=== PATIENT | female | born 1955 | race Caucasian/White ===

== ENCOUNTER 2016-10-20 06:50 | Day surgery (SDC) | payer OTHER ==
[~2016-10-20] VITALS: Ht 149.9 cm; Wt 87.0 kg
[2016-10-20] VITALS (14 sets, daily range): BP systolic 78–148; BP diastolic 44–70; PULSE 67–90; RESP 12–18; Ht 149.9 cm; Wt 87.0 kg
[2016-10-20] MEDS ORDERED: ATOR40TA68 PO (07:18)
[2016-10-20] MEDS ORDERED: OMEP20CA16 PO (07:18)
[2016-10-20] MEDS ORDERED: LOSA100T7 PO (07:19)
[2016-10-20] MEDS ORDERED: HYD25 PO (07:19)
[2016-10-20] MEDS ORDERED: SPIR25TA PO (07:20)
[2016-10-20] MEDS ORDERED: ASPI-664 PO (07:20)
[2016-10-20] MEDS ORDERED: SERT50TA6 PO (07:20)
[2016-10-20] MEDS ORDERED: NAPR-688 PO (07:21)
[2016-10-20 09:48] LABS: ADD SCAN DIFF NO
--- NOTE | 2016-10-20 09:58 | RADRPT ---
PROCEDURE: XR Chest. CLINICAL INDICATION: Preoperative for fibroids. TECHNIQUE: Single frontal view. COMPARISON: None. FINDINGS: The lungs are clear. The heart size is normal. There is no pleural effusion. There is no pneumothorax. IMPRESSION: 1. Normal chest radiograph. RPTAT: QQ .Shawn Clemens MD, MD Date Time Electronically viewed and signed by .Shawn Clemens MD, on 10/20/2016 09:57 .R/
[2016-10-20] MEDS ORDERED: ONDANSETRON 4 MG INJ IV PRN ×2 (10:00→14:00)
[2016-10-20] MEDS ORDERED: PROCHLORPERAZINE 10 MG INJ IV PRN (10:00)
[2016-10-20] MEDS ORDERED: MEPERIDINE 25 MG INJ IV PRN (10:00)
[2016-10-20] MEDS ORDERED: HYDROmorphONE (0.2 MG/ML) 10ML SYG IV PRN ×4 (10:00→14:00)
[2016-10-20] MEDS ORDERED: DIPHENHYDRAMINE 50 MG INJ IV PRN (10:00)
[2016-10-20 10:01] LABS: BASOPHILS % 0.4 % (0.0-2.0); EOSINOPHILS # 0.3 10^3/ul (0.0-0.5); EOSINOPHILS % 4.8 % (0.0-7.0); HEMATOCRIT 34.6 % (37.0-47.0); HEMOGLOBIN 11.7 g/dl (12.0-16.0); LYMPHOCYTES # 1.4 10^3/ul (0.8-2.9); LYMPHOCYTES % 24.7 % (15.0-51.0); MEAN CORPUSCULAR HEMOGLOBIN 29.3 pg (29.0-33.0); MEAN CORPUSCULAR HGB CONC 33.8 g/dl (32.0-37.0); MEAN CORPUSCULAR VOLUME 86.7 fl (82.0-101.0); MEAN PLATELET VOLUME 12.6 fl (7.4-10.4); MONOCYTE # 0.4 10^3/ul (0.3-0.9); MONOCYTES % 6.6 % (0.0-11.0); NEUTROPHIL # 3.5 10^3/ul (1.6-7.5); NEUTROPHILS % 63.1 % (39.0-77.0); PLATELET COUNT 127 10^3/UL (140-415); RED BLOOD COUNT 3.99 10^6/ul (4.20-5.40); RED CELL DISTRIBUTION WIDTH 12.6 % (11.5-14.5); WHITE BLOOD COUNT 5.5 10^3/ul (4.8-10.8)
[2016-10-20 10:23] LABS: ALBUMIN 4.5 g/dl (3.3-4.9); ALBUMIN/GLOBULIN RATIO 1.87; BILIRUBIN,INDIRECT 0.3 mg/dl (0-1.1); BILIRUBIN,TOTAL 0.3 mg/dl (0.2-1.3); TOTAL PROTEIN 6.9 g/dl (6.1-8.1)
[2016-10-20 10:29] LABS: CALCIUM 9.3 mg/dl (8.4-10.2); CREATININE 0.67 mg/dl (0.44-1.00); POTASSIUM 3.6 mmol/L (3.5-5.1)
[2016-10-20] MEDS ORDERED: MIDAZOLAM 1 MG/ML 2 ML INJ ONE (12:36)
[2016-10-20] MEDS ORDERED: ONDANSETRON 4 MG INJ ONE (12:37)
[2016-10-20] MEDS ORDERED: PROPOFOL 20 ML ONE (12:37)
[2016-10-20] MEDS ORDERED: LIDOCAINE 2% (SDV) 5 ML INJ ONE (12:37)
[2016-10-20] MEDS ORDERED: FAMOTIDINE 20 MG INJ ONE (12:37)
[2016-10-20] MEDS ORDERED: DEXAMETHASONE 4 MG/ML 1 ML INJ ONE (12:37)
[2016-10-20] MEDS ORDERED: SUCCINYLCHOLINE CHLORIDE 100 MG/5 ML SYG IV ONE (13:12)
[2016-10-20] MEDS ORDERED: ROCURONIUM 50 MG INJ ONE (13:12)
[2016-10-20] MEDS ORDERED: EPHEDrine SULFATE 50 MG/5 ML SYG ONE (13:14)
[2016-10-20] MEDS ORDERED: ALBUTEROL 0.5% (NEB) 2.5 MG/0.5 ML AMP ONE (13:42)
[2016-10-20] MEDS ORDERED: FENTAnyl 50 MCG/ML VIAL IV PRN ×2 (14:00)
[2016-10-20] MEDS ORDERED: ALBUTEROL 0.083% (NEB) 2.5 MG/3 ML AMP HHN ONE (14:00)
--- NOTE | 2016-10-20 14:28 | OPR ---
Date/Time of Note Date/Time of Note DATE: 10/20/16 TIME: 14:25 Operative Report Preoperative Diagnosis Postmenopausal [place] Postoperative Diagnosis Same Operation/Procedure Performed Dilation and Curettage Surgeon: DARRYL BAILON MD Anesthesia: general Estimated Blood Loss: minimal Specimens ECC and EMC Complications: None DARRYL BAILON MD Oct 20, 2016 14:28
--- NOTE | 2016-10-20 17:18 | RADRPT ---
Vent Rate: 63 bpm RR Interval: 0 msec MO Interval: 172 msec QRS Duration: 88 msec QT Interval: 438 msec QTC Interval: 448 msec P-R-T [place]: 47 - -36 - 35 degrees Normal sinus rhythm Left axis deviation Abnormal ECG Electronically Signed By: Demar Garrison [id number]
--- NOTE | 2016-10-21 08:54 | PREOPHP ---
DATE OF ADMISSION: 10/20/2016 HISTORY OF PRESENT ILLNESS: Djraq-[id number]-[id number] female with a history of postmenopausal bleeding. PAST MEDICAL HISTORY: Hypertension. PAST MEDICAL HISTORY: Cholecystectomy. ALLERGIES: NO KNOWN ALLERGIES. FAMILY HISTORY: Diabetes. PHYSICAL EXAMINATION: VITAL SIGNS: The patient is afebrile. Vital signs are stable. HEENT: Head and neck within normal limits. ABDOMEN: Soft, nontender, nondistended. PELVIC: Exam normal. EXTREMITIES: Within normal limits. IMPRESSION: Postmenopausal bleeding. PLAN: Dilatation and curettage, risks, benefits and alternatives of procedure were explained to the patient. The patient states she understood and gave informed consent for the procedure. Dictated By: Marlon Romeo MD /cherie/ /Document#: [id number]
--- NOTE | 2016-10-28 06:36 | OPR ---
DATE OF OPERATION: 10/20/2016 PREOPERATIVE DIAGNOSIS: Postmenopausal bleeding. POSTOPERATIVE DIAGNOSIS: Postmenopausal bleeding. OPERATION PERFORMED: Endocervical curettage. Dilation and endometrial curettage. SURGEON: Marlon Romeo MD ANESTHESIA: General ANESTHESIOLOGIST: DESCRIPTION OF PROCEDURE: The patient was taken to the operating room and placed on the operating room table in supine position. After adequate general anesthesia was given, the patient was placed in dorsal lithotomy position. Speculum was placed into the vagina. Tenaculum was used to grasp the anterior lip of the cervix. Using endocervical curette, endocervical curettage was performed. Specimen obtained was sent to Pathology. Next, using cervical dilators, the cervical os was dilated. Using a sharp curette, endometrial curettage was performed and specimen obtained was sent to Pathology. All the instruments were removed. Adequate hemostasis was assured. The patient tolerated the procedure well. The patient was awakened from anesthesia and transferred to recovery in stable condition. ESTIMATED BLOOD LOSS: Minimal COMPLICATIONS: None. COUNTS: All counts were correct. Dictated By: Marlon Romeo MD /cherie/shaina /Document#: [id number]
== END 2016-10-20 15:10 | disposition home or self-care (01) ==
LOC: SDS 06:50
PROVIDERS: ATTEND Obstetrics & Gynecology
DX: N95.9 Unspecified menopausal and perimenopausal disorder (principal); I10 Essential (primary) hypertension; E66.9 Obesity, unspecified; Z68.38 Body mass index [BMI] 38.0-38.9, adult; J45.909 Unspecified asthma, uncomplicated
CPT/HCPCS: 58120; 71010; 80053; 85025; 86850; 86900; 86901; 88305; 93005; 94664; J1100; J2250; J2405; J3010; J7999; Z7512; Z7610

== ENCOUNTER 2016-12-31 05:16 | Inpatient (IN) | payer OTHER ==
[~2016-12-31] VITALS: Ht 149.9 cm; Wt 78.6 kg
[2016-12-31] VITALS (29 sets, daily range): BP systolic 99–151; BP diastolic 54–78; PULSE 55–89; RESP 10–22; Ht 149.9 cm; Wt 78.6 kg
[~2016-12-31 05:16] MED LIST: ASPI-664 PO; ATOR40TA68 PO; HYDR25TA6 PO; LOSA100T7 PO; NAPR-688 PO; OMEP20CA16 PO; SERT50TA6 PO; SPIR25TA PO
[2016-12-31] MEDS ORDERED: D5-NS + KCL 20 MEQ 1,000 ML IV SCH (06:00)
[2016-12-31] MEDS ORDERED: Metronidazole 500 MG in NS 100 ML IVPB SCH (06:00)
[2016-12-31] MEDS ORDERED: CEFAZOLIN 2 GM/50 ML (PMX) 50 ML IVPB SCH (06:00)
[2016-12-31] MEDS ORDERED: AMLO5TAB4 PO (06:13)
[2016-12-31] MEDS ORDERED: fish oil (06:13)
[2016-12-31] MEDS ORDERED: omega 3 (06:14)
[2016-12-31] MEDS ORDERED: vit c (06:14)
[2016-12-31] MEDS ORDERED: [UNRECOGNIZED DRUG - OTHER] (06:14)
[2016-12-31] MEDS ORDERED: mvi (06:14)
[2016-12-31] MEDS ORDERED: EPHEDrine SULFATE 50 MG/5 ML SYG ONE (07:00)
--- NOTE | 2016-12-31 07:03 | HPN ---
Date/Time of Note Date/Time of Note DATE: 12/31/16 TIME: 07:01 Interval H&P Admission Note Pt. seen H&P reviewed: No system changes SHASTA SERRANO MD Dec 31, 2016 07:03
[2016-12-31] MEDS ORDERED: MIDAZOLAM 1 MG/ML 2 ML INJ ONE (07:38)
[2016-12-31] MEDS ORDERED: PROPOFOL 20 ML ONE (07:38)
[2016-12-31] MEDS ORDERED: ROCURONIUM 50 MG INJ ONE ×3 (07:38→09:19)
[2016-12-31] MEDS ORDERED: FENTAnyl 50 MCG/ML VIAL ONE (07:39)
[2016-12-31] MEDS ORDERED: morphine SULFATE/PF (10 MG/10 ML) INJ ONE (07:39)
[2016-12-31] MEDS ORDERED: DEXAMETHASONE 4 MG/ML 1 ML INJ ONE (07:39)
[2016-12-31] MEDS ORDERED: METOCLOPRAMIDE 10 MG INJ ONE (07:39)
[2016-12-31] MEDS ORDERED: CEFAZOLIN 1 GM INJ ONE (07:52)
[2016-12-31] MEDS ORDERED: metroNIDAZOLE 500 MG/NS (PMX) 100 ML IVPB ONE (07:52)
[2016-12-31] MEDS ORDERED: METHYLENE BLUE 1% 10 ML INJ ONE (08:58)
[2016-12-31] MEDS ORDERED: THROMBIN 5000 UNIT VIAL ONE (09:12)
[2016-12-31] MEDS ORDERED: ROPIVACAINE 0.5 % 30 ML VIAL ONE (11:27)
[2016-12-31] MEDS ORDERED: DIPHENHYDRAMINE 50 MG INJ IV PRN ×3 (11:30→12:30)
[2016-12-31] MEDS ORDERED: ONDANSETRON 4 MG INJ IV PRN ×3 (11:30→12:30)
[2016-12-31] MEDS ORDERED: METOCLOPRAMIDE 10 MG INJ IV PRN (11:30)
[2016-12-31] MEDS ORDERED: LABETALOL HCL 20MG INJ IV PRN (11:30)
[2016-12-31] MEDS ORDERED: NALOXONE (0.4 MG/ML) INJ IV PRN (11:30)
[2016-12-31] MEDS ORDERED: EPHEDrine SULFATE 50 MG/5 ML SYG IV PRN (11:30)
[2016-12-31] MEDS ORDERED: ALBUTEROL 0.083% (NEB) 2.5 MG/3 ML AMP HHN PRN (11:30)
[2016-12-31] MEDS ORDERED: hydrALAzine 20 MG INJ IV PRN (11:30)
[2016-12-31] MEDS ORDERED: HYDROmorphONE (0.2 MG/ML) 10ML SYG IV PRN (11:30)
[2016-12-31] MEDS ORDERED: HYDROmorphONE 1 MG/ML SYG IV PRN ×3 (11:30)
[2016-12-31] MEDS ORDERED: NEOSTIGMINE 3 MG/3 ML SYRINGE ONE ×2 (11:35→12:03)
[2016-12-31] MEDS ORDERED: GLYCOPYRROLATE 0.4 MG INJ ONE (11:35)
[2016-12-31] MEDS ORDERED: SUGAMMADEX SODIUM 200 MG/2 ML VIAL IV ONE (12:14)
[2016-12-31] MEDS: POTASSIUM CHLORIDE 20 MEQ in LACTATED RINGER'S 1,000 ML IV SCH ×2 (12:17→17:39)
--- NOTE | 2016-12-31 12:29 | OPPN ---
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
[2016-12-31] MEDS ORDERED: CEFAZOLIN 1 GM in SOD CHLORIDE 0.9% 100 ML IVPB SCH (12:30)
[2016-12-31] MEDS: HYDROmorphONE (0.2 MG/ML) 10ML SYG IV PRN ×4 (12:39→13:14)
[2016-12-31] MEDS: MEPERIDINE 25 MG INJ IV PRN ×2 (12:39→13:28)
[2016-12-31 13:27] LABS: BASOPHILS % 0.2 % (0.0-2.0); EOSINOPHILS % 0.5 % (0.0-7.0); HEMATOCRIT 34.6 % (37.0-47.0); LYMPHOCYTES # 0.6 10^3/ul (0.8-2.9); LYMPHOCYTES % 10.3 % (15.0-51.0); MEAN CORPUSCULAR HEMOGLOBIN 30.2 pg (29.0-33.0); MEAN CORPUSCULAR HGB CONC 34.7 g/dl (32.0-37.0); MEAN CORPUSCULAR VOLUME 86.9 fl (82.0-101.0); MEAN PLATELET VOLUME 11.6 fl (7.4-10.4); MONOCYTE # 0.1 10^3/ul (0.3-0.9); NEUTROPHIL # 5.2 10^3/ul (1.6-7.5); NEUTROPHILS % 87.5 % (39.0-77.0); PLATELET COUNT 141 10^3/UL (140-415); RED BLOOD COUNT 3.98 10^6/ul (4.20-5.40); RED CELL DISTRIBUTION WIDTH 13.1 % (11.5-14.5); WHITE BLOOD COUNT 5.9 10^3/ul (4.8-10.8)
[2016-12-31 13:54] LABS: CALCIUM 8.7 mg/dl (8.4-10.2); CREATININE 0.57 mg/dl (0.44-1.00); POTASSIUM 3.8 mmol/L (3.5-5.1)
[2016-12-31] MEDS: CEFAZOLIN 1 GM/50 ML (PMX) 50 ML IVPB SCH ×2 (15:16→22:51)
[2016-12-31] MEDS: metroNIDAZOLE 500 MG/NS (PMX) 100 ML IVPB SCH ×2 (16:38→21:10)
[2016-12-31] MEDS: KETOROLAC 30 MG INJ IV PRN (17:38)
[2016-12-31] MEDS: ATORVASTATIN 40 MG TAB PO SCH (21:10)
[2016-12-31] MEDS: AMLODIPINE 5 MG TAB PO SCH (21:11)
[2016-12-31] MEDS: FAMOTIDINE 20 MG INJ IV SCH (21:11)
--- NOTE | 2016-12-31 23:24 | HP ---
DATE OF ADMISSION: 12/31/2016 HISTORY OF PRESENT ILLNESS: Patient is a 61-year-old female with history of hypertension, depression, who was being followed by Dr. Comer as an outpatient for gradually increasing pelvic mass. Patient was in fact seen by Dr. Romeo and was referred to Dr. Comer. The mass was thought to be complex and likely fibroid. Patient also had uterine cyst surgery with postmenopausal bleeding. Patient underwent endocervical curettage, dilatation and endometrial curettage which by Dr. Romeo in October 2016. Endocervical curettage was negative for dysplasia or malignancy; however, endometrial curettings was not adequate for evaluation. Patient was brought into the hospital today and underwent laparoscopic total hysterectomy and bilateral salpingo-oophorectomy, ureter dissection and enterolysis. Patient is being admitted for further evaluation and management. Patient denies any chest pain or shortness of breath. No reported headache, dizziness, syncope. No history of leg pain or weakness or numbness in any extremity. No recent fever or chills. REVIEW OF SYSTEMS: Other than postoperative pain, rest of review of systems were unremarkable. PAST SURGICAL HISTORY: Patient is status post section and abdominoplasty, and tubal ligation. ALLERGIES: NONE. FAMILY HISTORY: Noncontributory. SOCIAL HISTORY: No smoking or alcohol. PHYSICAL EXAMINATION: GENERAL: Patient conscious, awake, alert. VITAL SIGNS: Temperature 98, pulse 60, respiration 18, blood pressure 136/71, O2 sat 95% on 2 L nasal cannula. HEENT: Normal. Oropharynx clear. NECK: Supple. No mass or thyromegaly. CHEST: Fairly clear. CARDIAC: S1, S2 No murmur. ABDOMEN: Patient is status post surgery. EXTREMITIES: No leg edema. Pedal pulses palpable. SKIN: Without rash. NEUROLOGIC: Patient is awake, alert, with no gross focal deficit. LABORATORY DATA: WBC 5.9, hemoglobin 12, platelet 141,000. Sodium 140, potassium 3.8, BUN 9, creatinine 0.5, glucose 175, calcium 8.7. IMPRESSION: 1. Postmenopausal bleeding and adnexal mass status post laparoscopic total hysterectomy and bilateral salpingo- oophorectomy, ureter dissection and enterolysis. 2. Hypertension. 3. Dyslipidemia. 4. Depression. PLAN: Patient admitted on medical floor. Patient was started on clear liquid diet and will be started on Norvasc for hypertension. Will continue Lipitor for dyslipidemia, and Zoloft for depression. Patient is already on IV Pepcid for GI prophylaxis, and SCD for DVT prophylaxis. Further recommendations depend on patient's hospital course. Will continue to follow her from medical standpoint. Dictated By: Enio Cortés MD /cherie/jazmin /Document#: [id number]
[2017-01-01] MEDS: metroNIDAZOLE 500 MG/NS (PMX) 100 ML IVPB SCH (05:00)
[2017-01-01] MEDS: KETOROLAC 30 MG INJ IV PRN (05:01)
[2017-01-01 05:09] VITALS: BP 116/59; PULSE 69; RESP 18
[2017-01-01 06:18] LABS: BASOPHILS % 0.2 % (0.0-2.0); EOSINOPHILS % 0.2 % (0.0-7.0); HEMATOCRIT 29.2 % (37.0-47.0); HEMOGLOBIN 9.5 g/dl (12.0-16.0); LYMPHOCYTES # 0.8 10^3/ul (0.8-2.9); LYMPHOCYTES % 17.4 % (15.0-51.0); MEAN CORPUSCULAR HEMOGLOBIN 29.3 pg (29.0-33.0); MEAN CORPUSCULAR HGB CONC 32.5 g/dl (32.0-37.0); MEAN CORPUSCULAR VOLUME 90.1 fl (82.0-101.0); MEAN PLATELET VOLUME 12.3 fl (7.4-10.4); MONOCYTE # 0.3 10^3/ul (0.3-0.9); MONOCYTES % 6.7 % (0.0-11.0); NEUTROPHIL # 3.6 10^3/ul (1.6-7.5); NEUTROPHILS % 75.3 % (39.0-77.0); PLATELET COUNT 129 10^3/UL (140-415); RED BLOOD COUNT 3.24 10^6/ul (4.20-5.40); RED CELL DISTRIBUTION WIDTH 13.3 % (11.5-14.5); WHITE BLOOD COUNT 4.8 10^3/ul (4.8-10.8)
[2017-01-01] MEDS: CEFAZOLIN 1 GM/50 ML (PMX) 50 ML IVPB SCH (06:40)
[2017-01-01] MEDS: morphine 2 MG INJ IV PRN ×2 (06:45→12:40)
[2017-01-01] MEDS: POTASSIUM CHLORIDE 20 MEQ in LACTATED RINGER'S 1,000 ML IV SCH ×2 (06:47→17:51)
[2017-01-01 07:03] LABS: CALCIUM 8.5 mg/dl (8.4-10.2); CREATININE 0.67 mg/dl (0.44-1.00)
[2017-01-01 08:30] VITALS: BP 101/50; RESP 18
[2017-01-01] MEDS: FAMOTIDINE 20 MG INJ IV SCH (08:56)
[2017-01-01] MEDS: SERTRALINE 50 MG TAB PO SCH (08:56)
[2017-01-01] MEDS: AMLODIPINE 5 MG TAB PO SCH ×2 (08:57→20:05)
[2017-01-01] MEDS ORDERED: PANTOPRAZOLE (EC) 40 MG TAB PO SCH (09:00)
--- NOTE | 2017-01-01 09:20 | PN ---
Date/Time of Note Date/Time of Note DATE: 01/01/17 TIME: 09:18 Assessment/Plan VTE Prophylaxis VTE Prophylaxis Intervention: ambulation Lines/Catheters IV Catheter Type (from Nrsg): Peripheral IV Urinary Cath still in place: Yes Subjective 24 Hr Interval Summary Free Text/Dictation Anesthesia Note: A 61 yea female s/p lap hysterectomy BSO under GA , spinal duramorph is doing fine. pain is controlled, no itching, headache, back apin or iflamation, or N/ V. care per surgery Exam/Review of Systems Vital Signs Vitals Vital Signs Date Time Temp Pulse Resp B/P Pulse Ox O2 Delivery O2 Flow Rate FiO2 01/01/17 08:30 98.2 64 18 101/50 97 01/01/17 05:09 Nasal Cannula 2.0 Intake and Output 12/31/16 12/31/16 01/01/17 15:00 23:00 07:00 Intake Total 1920 ml 710 ml 1300 ml Output Total 500 ml 750 ml 350 ml Balance 1420 ml -40 ml 950 ml Results Result Diagram: 01/01/17 0500 01/01/17 0500 Results 24 hrs Laboratory Tests Test 12/31/16 13:15 01/01/17 05:00 White Blood Count 5.9 4.8 Red Blood Count 3.98 L 3.24 L Hemoglobin 12.0 9.5 #L Hematocrit 34.6 L 29.2 L Mean Corpuscular Volume 86.9 90.1 Mean Corpuscular Hemoglobin 30.2 29.3 Mean Corpuscular Hemoglobin Concent 34.7 32.5 Red Cell Distribution Width 13.1 13.3 Platelet Count 141 129 L Mean Platelet Volume 11.6 H 12.3 H Neutrophils % 87.5 H 75.3 Lymphocytes % 10.3 L 17.4 Monocytes % 1.0 6.7 Eosinophils % 0.5 0.2 Basophils % 0.2 0.2 Nucleated Red Blood Cells % 0.0 0.0 Neutrophils # 5.2 3.6 Lymphocytes # 0.6 L 0.8 Monocytes # 0.1 L 0.3 Eosinophils # 0.0 0.0 Basophils # 0.0 0.0 Nucleated Red Blood Cells # 0.0 0.0 Sodium Level 140 140 Potassium Level 3.8 4.0 Chloride Level 108 107 Carbon Dioxide Level 24 30 Anion Gap 12 7 L Blood Urea Nitrogen 9 10 Creatinine 0.57 0.67 Glucose Level 175 87 # Calcium Level 8.7 8.5 Medications Medications Current Medications Naloxone HCl (Narcan) 0.1 mg Q2M PRN IV FOR RESP RATE 8 OR LESS; Start at 11:30; Stop 01/01/17 at 11:29 Ketorolac Tromethamine (Toradol) 30 mg Q6H PRN IV PAIN Last administered on 05:01; Admin Dose 30 MG; Start 12/31/16 at 11:30; Stop 01/01/17 at 11:29 Hydromorphone HCl (Dilaudid) 1 mg Q3H PRN IV BREAKTHROUGH PAIN; Start 12/31/16 at 11:30; Stop 01/01/17 at 11:29 Hydromorphone HCl (Dilaudid) 0.2 mg Q3H PRN IV PAIN LEVEL 1-5; Start 12/31/16 at 11:30; Stop 01/01/17 at 11:29 Hydromorphone HCl (Dilaudid) 0.4 mg Q3H PRN IV PAIN LEVEL 6-10; Start 12/31/16 at 11:30; Stop 01/01/17 at 11:29 Diphenhydramine HCl (Benadryl) 25 mg Q6H PRN IV ITCHING; Start 12/31/16 at 11: 30; Stop 01/01/17 at 11:29 Ondansetron HCl 4 mg 4 mg Q6H PRN IV NAUSEA AND/OR VOMITING; Start 12/31/16 at 11:30; Stop 01/01/17 at 11:29 Metronidazole (Flagyl 500 Mg (Pmx)) 100 ml @ 100 mls/hr Q8H IVPB Last administered on 01/01/17 05:00; Admin Dose 100 MLS/HR; Start 12/31/16 at 12:30 ; Stop 01/01/17 at 12:29 Morphine Sulfate (morphine) 2 mg Q2H PRN IV PAIN LEVEL 6-10 Last administered on 01/01/17 06:45; Admin Dose 2 MG; Start 12/31/16 at 12:30 Acetaminophen/ Hydrocodone Bitart ([place] (5/325)) 1 tab Q6H PRN PO PAIN LEVEL 6 -10; Start 12/31/16 at 12:30 Diphenhydramine HCl (Benadryl) 25 mg Q6H PRN IV ITCHING; Start 12/31/16 at 12: 30 Ondansetron HCl (Zofran Inj) 4 mg Q6H PRN IV NAUSEA AND/OR VOMITING; Start at 12:30 Famotidine 20 mg 20 mg Q12 IV Last administered on 01/01/17 08:56; Admin Dose 20 MG; Start 12/31/16 at 21:00 Potassium Chloride/Lactated Ringer's (KCl/Lr) 1,010 ml @ 100 mls/hr Q10H6M IV Last administered on 01/01/17 06:47; Admin Dose 100 MLS/HR; Start 12/31/16 at 12:17 Amlodipine Besylate (Norvasc) 5 mg BID PO Last administered on 01/01/17 08:57 ; Admin Dose 5 MG; Start 12/31/16 at 21:00 Atorvastatin Calcium (Lipitor) 40 mg QHS PO Last administered on 12/31/16 21: 10; Admin Dose 40 MG; Start 12/31/16 at 21:00 Sertraline HCl (Zoloft) 50 mg DAILY PO Last administered on 01/01/17 08:56; Admin Dose 50 MG; Start 01/01/17 at 09:00 ALEXANDER CARDENAS MD Jan 01, 2017 09:20
[2017-01-01 15:30] VITALS: BP 115/67; RESP 18
--- NOTE | 2017-01-01 15:58 | PN ---
Date/Time of Note Date/Time of Note DATE: 01/01/17 TIME: 15:54 Assessment/Plan VTE Prophylaxis VTE Prophylaxis Intervention: SCD's Lines/Catheters IV Catheter Type (from Nrsg): Peripheral IV Urinary Cath still in place: Yes Reason Cath still needed: urinary retention Assessment/Plan Chief Complaint/Hosp Course Patient tolerates full liquid diet well denies any nausea vomiting. The catheter DC'd patient is able to void. Patient's complains of pain which is currently controlled Problems: Assessment/Plan 1. Postmenopausal bleeding and adnexal mass status post laparoscopic total hysterectomy and bilateral salpingo- oophorectomy, ureter dissection and enterolysis. Continue morphine as needed for pain. Follow-up surgical recommendations. 2. Hypertension. Continue Norvasc. 3. Dyslipidemia. Continue Lipitor. 4. Depression. Continue Zoloft. Further recommendations based on clinical course. Plan of care discussed with Dr. Cortés Exam/Review of Systems Vital Signs Vitals Vital Signs Date Time Temp Pulse Resp B/P Pulse Ox O2 Delivery O2 Flow Rate FiO2 01/01/17 08:30 98.2 64 18 101/50 97 01/01/17 08:00 Nasal Cannula 1.0 Intake and Output 12/31/16 12/31/16 01/01/17 15:00 23:00 07:00 Intake Total 1920 ml 710 ml 1300 ml Output Total 500 ml 750 ml 350 ml Balance 1420 ml -40 ml 950 ml Exam Constitutional: alert, obese Head: normocephalic Neck: supple Respiratory: normal air movement Cardiovascular: nl pulses Gastrointestinal: non-tender, soft Genitourinary - Female: other (S/p surgery) Extremities: normal pulses Results Result Diagram: 01/01/17 0500 01/01/17 0500 Results 24 hrs Laboratory Tests Test 01/01/17 05:00 White Blood Count 4.8 Red Blood Count 3.24 L Hemoglobin 9.5 #L Hematocrit 29.2 L Mean Corpuscular Volume 90.1 Mean Corpuscular Hemoglobin 29.3 Mean Corpuscular Hemoglobin Concent 32.5 Red Cell Distribution Width 13.3 Platelet Count 129 L Mean Platelet Volume 12.3 H Neutrophils % 75.3 Lymphocytes % 17.4 Monocytes % 6.7 Eosinophils % 0.2 Basophils % 0.2 Nucleated Red Blood Cells % 0.0 Neutrophils # 3.6 Lymphocytes # 0.8 Monocytes # 0.3 Eosinophils # 0.0 Basophils # 0.0 Nucleated Red Blood Cells # 0.0 Sodium Level 140 Potassium Level 4.0 Chloride Level 107 Carbon Dioxide Level 30 Anion Gap 7 L Blood Urea Nitrogen 10 Creatinine 0.67 Glucose Level 87 # Calcium Level 8.5 Medications Medications Current Medications Morphine Sulfate (morphine) 2 mg Q2H PRN IV PAIN LEVEL 6-10 Last administered on 01/01/17 12:40; Admin Dose 2 MG; Start 12/31/16 at 12:30 Acetaminophen/ Hydrocodone Bitart ([place] (5/325)) 1 tab Q6H PRN PO PAIN LEVEL 6 -10; Start 12/31/16 at 12:30 Diphenhydramine HCl (Benadryl) 25 mg Q6H PRN IV ITCHING; Start 12/31/16 at 12: 30 Ondansetron HCl (Zofran Inj) 4 mg Q6H PRN IV NAUSEA AND/OR VOMITING; Start at 12:30 Famotidine 20 mg 20 mg Q12 IV Last administered on 01/01/17 08:56; Admin Dose 20 MG; Start 12/31/16 at 21:00 Potassium Chloride/Lactated Ringer's (KCl/Lr) 1,010 ml @ 50 mls/hr [id number] IV Last administered on 01/01/17 06:47; Admin Dose 100 MLS/HR; Start 12/31/16 at 12:17 Amlodipine Besylate (Norvasc) 5 mg BID PO Last administered on 01/01/17 08:57 ; Admin Dose 5 MG; Start 12/31/16 at 21:00 Atorvastatin Calcium (Lipitor) 40 mg QHS PO Last administered on 12/31/16 21: 10; Admin Dose 40 MG; Start 12/31/16 at 21:00 Sertraline HCl (Zoloft) 50 mg DAILY PO Last administered on 01/01/17 08:56; Admin Dose 50 MG; Start 01/01/17 at 09:00 EMORY ADORNO Jan 01, 2017 15:58
[2017-01-01] MEDS: HYDROCODONE/APAP (5/325) TAB PO PRN (17:50)
[2017-01-01 19:48] VITALS: BP 110/55; PULSE 64; RESP 18
[2017-01-01] MEDS: ATORVASTATIN 40 MG TAB PO SCH (20:04)
[2017-01-01] MEDS: FAMOTIDINE 20 MG TAB PO SCH (20:05)
--- NOTE | 2017-01-01 23:53 | PN ---
Date/Time of Note Date/Time of Note DATE: 01/01/17 TIME: 23:50 Assessment/Plan VTE Prophylaxis VTE Prophylaxis Intervention: SCD's Lines/Catheters IV Catheter Type (from Nrsg): Peripheral IV Urinary Cath still in place: No Assessment/Plan Chief Complaint/Hosp Course pelvic pain and cyst Problems: Assessment/Plan A- improving P- adv diet and possible d/c Subjective 24 Hr Interval Summary Free Text/Dictation + flatus and voided OK. Some flatus and august diet. Exam/Review of Systems Vital Signs Vitals Vital Signs Date Time Temp Pulse Resp B/P Pulse Ox O2 Delivery O2 Flow Rate FiO2 01/01/17 19:48 97.7 64 18 110/55 98 Room Air 01/01/17 08:00 1.0 Intake and Output 12/31/16 12/31/16 01/01/17 15:00 23:00 07:00 Intake Total 1920 ml 710 ml 1300 ml Output Total 500 ml 750 ml 350 ml Balance 1420 ml -40 ml 950 ml Exam Resp- clear CVS- NSR Abd- soft, NT, clean Ext- NT no edema Results Result Diagram: 01/01/17 0500 01/01/17 0500 Results 24 hrs Laboratory Tests Test 01/01/17 05:00 White Blood Count 4.8 Red Blood Count 3.24 L Hemoglobin 9.5 #L Hematocrit 29.2 L Mean Corpuscular Volume 90.1 Mean Corpuscular Hemoglobin 29.3 Mean Corpuscular Hemoglobin Concent 32.5 Red Cell Distribution Width 13.3 Platelet Count 129 L Mean Platelet Volume 12.3 H Neutrophils % 75.3 Lymphocytes % 17.4 Monocytes % 6.7 Eosinophils % 0.2 Basophils % 0.2 Nucleated Red Blood Cells % 0.0 Neutrophils # 3.6 Lymphocytes # 0.8 Monocytes # 0.3 Eosinophils # 0.0 Basophils # 0.0 Nucleated Red Blood Cells # 0.0 Sodium Level 140 Potassium Level 4.0 Chloride Level 107 Carbon Dioxide Level 30 Anion Gap 7 L Blood Urea Nitrogen 10 Creatinine 0.67 Glucose Level 87 # Calcium Level 8.5 Medications Medications Current Medications Morphine Sulfate (morphine) 2 mg Q2H PRN IV PAIN LEVEL 6-10 Last administered on 01/01/17t 12:40; Admin Dose 2 MG; Start 12/31/16 at 12:30 Acetaminophen/ Hydrocodone Bitart ([place] (5/325)) 1 tab Q6H PRN PO PAIN LEVEL 6 -10 Last administered on 01/01/17 17:50; Admin Dose 1 TAB; Start 12/31/16 at 12 :30 Diphenhydramine HCl (Benadryl) 25 mg Q6H PRN IV ITCHING; Start 12/31/16 at 12: 30 Ondansetron HCl 4 mg 4 mg Q6H PRN IV NAUSEA AND/OR VOMITING; Start 12/31/16 at 12:30 Potassium Chloride/Lactated Ringer's (KCl/Lr) 1,010 ml @ 50 mls/hr [id number] IV Last administered on 01/01/17 17:51; Admin Dose 50 MLS/HR; Start 12/31/16 at 12 :17 Amlodipine Besylate (Norvasc) 5 mg BID PO Last administered on 01/01/17 20:05 ; Admin Dose 5 MG; Start 12/31/16 at 21:00 Atorvastatin Calcium (Lipitor) 40 mg QHS PO Last administered on 01/01/17 20: 04; Admin Dose 40 MG; Start 12/31/16 at 21:00 Sertraline HCl (Zoloft) 50 mg DAILY PO Last administered on 01/01/17 08:56; Admin Dose 50 MG; Start 01/01/17 at 09:00 Famotidine (Pepcid) 20 mg BID PO Last administered on 01/01/17 20:05; Admin Dose 20 MG; Start 01/01/17 at 21:00 SHASTA SERRANO MD Jan 01, 2017 23:53
[2017-01-02] MEDS: morphine 2 MG INJ IV PRN ×2 (00:18→02:18)
[2017-01-02 02:20] VITALS: BP 123/70; RESP 18
[2017-01-02 05:39] LABS: BASOPHILS % 0.2 % (0.0-2.0); EOSINOPHILS # 0.2 10^3/ul (0.0-0.5); EOSINOPHILS % 3.8 % (0.0-7.0); HEMATOCRIT 31.7 % (37.0-47.0); HEMOGLOBIN 10.6 g/dl (12.0-16.0); LYMPHOCYTES # 1.2 10^3/ul (0.8-2.9); LYMPHOCYTES % 26.7 % (15.0-51.0); MEAN CORPUSCULAR HEMOGLOBIN 30.6 pg (29.0-33.0); MEAN CORPUSCULAR HGB CONC 33.4 g/dl (32.0-37.0); MEAN CORPUSCULAR VOLUME 91.6 fl (82.0-101.0); MEAN PLATELET VOLUME 12.1 fl (7.4-10.4); MONOCYTE # 0.2 10^3/ul (0.3-0.9); MONOCYTES % 5.3 % (0.0-11.0); NEUTROPHIL # 2.9 10^3/ul (1.6-7.5); PLATELET COUNT 125 10^3/UL (140-415); RED BLOOD COUNT 3.46 10^6/ul (4.20-5.40); RED CELL DISTRIBUTION WIDTH 13.3 % (11.5-14.5); WHITE BLOOD COUNT 4.5 10^3/ul (4.8-10.8)
[2017-01-02 06:28] LABS: CALCIUM 8.3 mg/dl (8.4-10.2); CREATININE 0.58 mg/dl (0.44-1.00)
[2017-01-02 07:51] VITALS: BP 135/69; RESP 14
[2017-01-02] MEDS: HYDROCODONE/APAP (5/325) TAB PO PRN ×2 (09:02→14:31)
[2017-01-02] MEDS: AMLODIPINE 5 MG TAB PO SCH (09:02)
[2017-01-02] MEDS: FAMOTIDINE 20 MG TAB PO SCH (09:02)
[2017-01-02] MEDS: SERTRALINE 50 MG TAB PO SCH (09:02)
--- NOTE | 2017-01-02 12:33 | OPR ---
Date/Time of Note Date/Time of Note DATE: 01/02/17 TIME: 12:32 Operative Report Free Text/Dictation OPERATIVE REPORT [facility] Name: Zonia Hendrix Medical Date: 12/31/16 Preoperative Diagnosis: 1-Pelvic mass with intermittent pain 2- Uterine enlargement Postoperative Diagnosis: 1- Benign adnexal mass pathology pending 2- Fibroids a/o adneomyosis 3- Pelvic adhesions 4- Ureteral stricture Procedures: 1- Total laparoscopic hysterectomy with bilateral salpingoophorectomy 2- Bilateral ureteral dissection with repositioning 3- Enterolysis Surgeon: Dr. Serrano Bench Technician: Dr. Mirna Zurita Anaesthesia: General Indications for Surgery: The patient is a 61 year old female with a 4-5 cm complex left adnexal mass and intermittent pain brought to the operating room to perform a Total laparoscopic hysterectomy and bilateral salpingoophorectomy and possible staging if needed and cytoreduction for advanced disease after considering all options with risks and benefits. Findings and Summary Name: Zonia Hendrix Medical After exploration we noted and enlarged irregular uterus and complex left adnexal mass with both adnexa densely adherent to the sidewalls and therefore it was necessary to perform a bilateral ureteral dissection. Subsequently the TLH/BSO was then completed uneventfully. Procedure: After being prepped and draped in the usual manner an EEA-sizer and pneumo- occluder were inserted vaginally to define anatomy and assure pneumoperitoneum. A 5 millimeter trocar was then inserted cephlad to the umbilicus without incident and the abdomen was insufflated to 15 mm of Hg pressure. Subsequently , we noted extensive omental adhesions densely adherent to the anterior abdominal wall and placed two 5 millimeter trocars laterally to the umbilicus and the extensive omental adhesions densely adherent to the anterior abdominal wall that were lysed with the Thunderbeat and Omni and we also inserted a 12 millimeter trocar suprapubically. At this time any pelvic adhesions were lysed with sharp dissection and an Omni if not adjacent to serosa. Subsequently we explored and observed a enlarged irregular uterus and complex 4-5 cm left adnexal mass with both adnexa densely adherent to the sidewalls obscuring the retroperitoneal anatomy and therefore it was necessary to perform a bilateral ureteral dissection. Initially the right round ligament was cauterized and transected with a Gyrus bipolar cutting forceps and the retroperitoneal spaced opened parallel to the IP ligament. The ureter was identified and required an extensive dissection with repositioning due to both the adnexal pathology adherent to the sidewall and the distorting the anatomy. The ureter was dissected from the broad ligament and pathology with a Omni and endo-dissector bluntly throughout the length to the level of the uterine artery and repositioned laterally allowing the uterine artery to be identified and clipped lateral to the ureter. Subsequently the ureter was again identified and further lateralized and an opening was created in the broad ligament with the ureter Name: [facility] visualized and the IP ligament was thoroughly cauterized and then transected with the Thunderbeat. At this time, the contralateral left round ligament was cauterized and transected with a Gyrus bipolar cutting forceps and the retroperitoneal spaced opened parallel to the IP ligament as previously done on the contralateral side with the Omni. The ureter was identified and also required a dissection with repositioning due to the adnexa and mass being adherent to the sidewall distorting the anatomy and IP-ligament hypervascularity. The ureter was dissected from the broad ligament and pathology with scar tissue and adhesions using an Omni and endo-dissector bluntly throughout the length to the level of the uterine artery and repositioned laterally allowing the uterine artery to be identified and clipped lateral to the ureter. Subsequently the IP ligament was isolated, cauterized with the Thunderbeat and transected with the ureter visualized. We then developed the bladder flap uneventfully with the Gyrus bipolar cutting forceps and Omni as well as blunt dissection. The right uterine artery was transected with a Thunderbeat and the cardinal ligament as well as utero-sacral ligament were transected with an Omni and Thunderbeat. An identical series of steps were taken on the left side. Hence, the uterus was allowed to remain intact to the adnexal mass and removed from the vagina with the Thunderbeat and Omni and hemostasis confirmed. The vagina was closed with Interrupted 2-0 Vicryl suture and continuous 2-0 strata-fix suture. The frozen section on the aforementioned adnexial mass and uterus were benign. After irrigating and assuring hemostasis the 12-millimeter trocar was removed and the fascia was closed with 0-vicryl using an endo-close devise. The gas was removed and the skin of all sites then closed with 4-0 Monocryl suture. The EBL was 100ml and the patient tolerated the procedure well and left the OR in good condition. Kristian Serrano M.D. Surgeon see signature line Anesthesia Type: other Estimated Blood Loss: 50 - 100 ml's KRISTIAN SERRANO MD Jan 02, 2017 12:33
[2017-01-02 14:07] VITALS: BP 131/75; RESP 16
--- NOTE | 2017-01-02 15:54 | PN ---
Date/Time of Note Date/Time of Note DATE: 01/02/17 TIME: 15:50 Assessment/Plan VTE Prophylaxis VTE Prophylaxis Intervention: ambulation, SCD's Lines/Catheters IV Catheter Type (from Nrsg): Peripheral IV Urinary Cath still in place: No Assessment/Plan Assessment/Plan 1. Postmenopausal bleeding and adnexal mass status post laparoscopic total hysterectomy and bilateral salpingo- oophorectomy, ureter dissection and enterolysis. - morphine as needed for pain. - Follow-up surgical recommendations. - advanced to soft diet -tolerated well 2. Hypertension. Continue Norvasc. 3. Dyslipidemia. Continue Lipitor. 4. Depression. Continue Zoloft. Anticipate discharge in am .Further recommendations based on clinical course. Plan of care discussed with Dr. Cortés Subjective 24 Hr Interval Summary Free Text/Dictation afebrile, ambulates in hallway, advanced to soft diet -tolerated well, norco for pain control, possible dc am, dw staff- no new events reported, ENT: no complaints Respiratory: no complaints Cardiovascular: no complaints Gastrointestinal: pain Genitourinary: no complaints Exam/Review of Systems Vital Signs Vitals Vital Signs Date Time Temp Pulse Resp B/P Pulse Ox O2 Delivery O2 Flow Rate FiO2 01/02/17 14:07 98.2 70 16 131/75 100 01/01/17 19:48 Room Air 01/01/17 08:00 1.0 Intake and Output 01/01/17 01/01/17 01/02/17 15:00 23:00 07:00 Intake Total 1850 ml 1060 ml Output Total 400 ml 1100 ml Balance 1450 ml -40 ml Results Result Diagram: 01/02/17 0437 01/02/17 0437 Results 24 hrs Laboratory Tests Test 01/02/17 04:37 White Blood Count 4.5 L Red Blood Count 3.46 L Hemoglobin 10.6 L Hematocrit 31.7 L Mean Corpuscular Volume 91.6 Mean Corpuscular Hemoglobin 30.6 Mean Corpuscular Hemoglobin Concent 33.4 Red Cell Distribution Width 13.3 Platelet Count 125 L Mean Platelet Volume 12.1 H Neutrophils % 64.0 Lymphocytes % 26.7 Monocytes % 5.3 Eosinophils % 3.8 Basophils % 0.2 Nucleated Red Blood Cells % 0.0 Neutrophils # 2.9 Lymphocytes # 1.2 Monocytes # 0.2 L Eosinophils # 0.2 Basophils # 0.0 Nucleated Red Blood Cells # 0.0 Sodium Level 143 Potassium Level 4.0 Chloride Level 110 Carbon Dioxide Level 31 Anion Gap 6 L Blood Urea Nitrogen 8 Creatinine 0.58 Glucose Level 89 Calcium Level 8.3 L Medications Medications Current Medications Morphine Sulfate (morphine) 2 mg Q2H PRN IV PAIN LEVEL 6-10 Last administered on 01/02/17 02:18; Admin Dose 2 MG; Start 12/31/16 at 12:30 Acetaminophen/ Hydrocodone Bitart ([place] (5/325)) 1 tab Q6H PRN PO PAIN LEVEL 6 -10 Last administered on 01/02/17 14:31; Admin Dose 1 TAB; Start 12/31/16 at 12 :30 Diphenhydramine HCl (Benadryl) 25 mg Q6H PRN IV ITCHING; Start 12/31/16 at 12: 30 Ondansetron HCl 4 mg 4 mg Q6H PRN IV NAUSEA AND/OR VOMITING; Start 12/31/16 at 12:30 Potassium Chloride/Lactated Ringer's (KCl/Lr) 1,010 ml @ 50 mls/hr [id number] IV Last administered on 01/01/17 17:51; Admin Dose 50 MLS/HR; Start 12/31/16 at 12 :17 Amlodipine Besylate (Norvasc) 5 mg BID PO Last administered on 01/02/17 09:02 ; Admin Dose 5 MG; Start 12/31/16 at 21:00 Atorvastatin Calcium (Lipitor) 40 mg QHS PO Last administered on 01/01/17 20: 04; Admin Dose 40 MG; Start 12/31/16 at 21:00 Sertraline HCl (Zoloft) 50 mg DAILY PO Last administered on 01/02/17 09:02; Admin Dose 50 MG; Start 01/01/17 at 09:00 Famotidine (Pepcid) 20 mg BID PO Last administered on 01/02/17 09:02; Admin Dose 20 MG; Start 01/01/17 at 21:00 BERTO SHAFER Jan 02, 2017 15:54
--- NOTE | 2017-01-02 17:49 | PDOCDIS ---
Discharge Instructions CONDITION Patient Condition: Stable HOME CARE INSTRUCTIONS: Diet Instructions: Regular ACTIVITY: Activity Restrictions: Slowly Increase Activity Avoid heavy lifting No Sexual Activity Do not operate Machinery Avoid Heavy Housework Bathing Restrictions: Sponge Bath FOLLOW UP/APPOINTMENTS Follow-up Plan FU with PMD X 1 WEEK FU WITH surgery as recommended Call 911 or go to the nearest hospital if symptoms get worse. Plan of care DW dR Starr/staff/patient. BERTO SHAFER Jan 02, 2017 17:49
--- NOTE | 2017-01-02 18:31 | PN ---
Date/Time of Note Date/Time of Note DATE: 01/02/17 TIME: 18:29 Assessment/Plan VTE Prophylaxis VTE Prophylaxis Intervention: SCD's Lines/Catheters IV Catheter Type (from Nrsg): Peripheral IV Urinary Cath still in place: No Assessment/Plan Chief Complaint/Hosp Course pelvic pain and cyst Problems: Assessment/Plan A- doing well P- probable discharge today Subjective 24 Hr Interval Summary Free Text/Dictation + flatus, OOB more and august diet. Exam/Review of Systems Vital Signs Vitals Vital Signs Date Time Temp Pulse Resp B/P Pulse Ox O2 Delivery O2 Flow Rate FiO2 01/02/17 14:07 98.2 70 16 131/75 100 01/01/17 19:48 Room Air 01/01/17 08:00 1.0 Intake and Output 01/01/17 01/01/17 01/02/17 15:00 23:00 07:00 Intake Total 1850 ml 1060 ml Output Total 400 ml 1100 ml Balance 1450 ml -40 ml Exam Resp- clear CVS- NSR Abd- soft, NT, clean Ext- NT no edema Results Result Diagram: 01/02/177 01/02/17 043 Results 24 hrs Laboratory Tests Test 01/02/17 04:37 White Blood Count 4.5 L Red Blood Count 3.46 L Hemoglobin 10.6 L Hematocrit 31.7 L Mean Corpuscular Volume 91.6 Mean Corpuscular Hemoglobin 30.6 Mean Corpuscular Hemoglobin Concent 33.4 Red Cell Distribution Width 13.3 Platelet Count 125 L Mean Platelet Volume 12.1 H Neutrophils % 64.0 Lymphocytes % 26.7 Monocytes % 5.3 Eosinophils % 3.8 Basophils % 0.2 Nucleated Red Blood Cells % 0.0 Neutrophils # 2.9 Lymphocytes # 1.2 Monocytes # 0.2 L Eosinophils # 0.2 Basophils # 0.0 Nucleated Red Blood Cells # 0.0 Sodium Level 143 Potassium Level 4.0 Chloride Level 110 Carbon Dioxide Level 31 Anion Gap 6 L Blood Urea Nitrogen 8 Creatinine 0.58 Glucose Level 89 Calcium Level 8.3 L Medications Medications Current Medications Morphine Sulfate (morphine) 2 mg Q2H PRN IV PAIN LEVEL 6-10 Last administered on 01/02/17t 02:18; Admin Dose 2 MG; Start 12/31/16 at 12:30 Acetaminophen/ Hydrocodone Bitart ([place] (5/325)) 1 tab Q6H PRN PO PAIN LEVEL 6 -10 Last administered on 01/02/17 14:31; Admin Dose 1 TAB; Start 12/31/16 at 12 :30 Diphenhydramine HCl (Benadryl) 25 mg Q6H PRN IV ITCHING; Start 12/31/16 at 12: 30 Ondansetron HCl 4 mg 4 mg Q6H PRN IV NAUSEA AND/OR VOMITING; Start 12/31/16 at 12:30 Potassium Chloride/Lactated Ringer's (KCl/Lr) 1,010 ml @ 50 mls/hr [id number] IV Last administered on 01/01/17 17:51; Admin Dose 50 MLS/HR; Start 12/31/16 at 12 :17 Amlodipine Besylate (Norvasc) 5 mg BID PO Last administered on 01/02/17 09:02 ; Admin Dose 5 MG; Start 12/31/16 at 21:00 Atorvastatin Calcium (Lipitor) 40 mg QHS PO Last administered on 01/01/17 20: 04; Admin Dose 40 MG; Start 12/31/16 at 21:00 Sertraline HCl (Zoloft) 50 mg DAILY PO Last administered on 01/02/17 09:02; Admin Dose 50 MG; Start 01/01/17 at 09:00 Famotidine (Pepcid) 20 mg BID PO Last administered on 01/02/17 09:02; Admin Dose 20 MG; Start 01/01/17 at 21:00 SHASTA SERRANO MD Jan 02, 2017 18:31
== END 2017-01-02 18:45 | disposition home or self-care (01) | DRG 743 ==
LOC: INTOOBSV 05:16 → REC 05:16 → MS1 13:33 → OBSVTOIN 13:36
PROC: 0UT9FZZ Resection of Uterus, Via Natural or Artificial Opening With Percutaneous Endoscopic Assistance (ICD-10-PCS; principal; 2017-01-02)
PROC: 0TN74ZZ Release Left Ureter, Percutaneous Endoscopic Approach (ICD-10-PCS; 2017-01-02)
PROC: 0TN64ZZ Release Right Ureter, Percutaneous Endoscopic Approach (ICD-10-PCS; 2017-01-02)
PROC: 0UT2FZZ Resection of Bilateral Ovaries, Via Natural or Artificial Opening With Percutaneous Endoscopic Assistance (ICD-10-PCS; 2017-01-02)
PROC: 0UT7FZZ Resection of Bilateral Fallopian Tubes, Via Natural or Artificial Opening With Percutaneous Endoscopic Assistance (ICD-10-PCS; 2017-01-02)
PROC: 0DNS4ZZ (ICD-10-PCS; 2017-01-02)
DX: D25.9 Leiomyoma of uterus, unspecified (principal); N13.5 Crossing vessel and stricture of ureter without hydronephrosis; I10 Essential (primary) hypertension; D27.1 Benign neoplasm of left ovary; N83.8 Other noninflammatory disorders of ovary, fallopian tube and broad ligament; N80.0 Endometriosis of uterus; N72 Inflammatory disease of cervix uteri; N73.6 Female pelvic peritoneal adhesions (postinfective); N84.0 Polyp of corpus uteri; N95.0 Postmenopausal bleeding; E78.5 Hyperlipidemia, unspecified; F32.9 Major depressive disorder, single episode, unspecified
CPT/HCPCS: 80048; 85025; 86850; 86900; 86901; 86920; 87086; 88104; 88305; 88331; 99217; G0378; J0690; J1100; J1170; J1644; J1885; J2175; J2250; J2270; J2274; J2405; J2710; J2765; J2795; J3010; J3480; J7120

== ENCOUNTER 2018-03-28 09:17 | Day surgery (SDC) | END 2018-03-28 14:31 | disposition home or self-care (01) ==

== ENCOUNTER 2019-02-06 16:31 | Emergency (ER) | payer OTHER ==
[~2019-02-06] VITALS: Ht 157.5 cm; Wt 71.8 kg
[~2019-02-06 16:31] MED LIST changes: +AMLO5TAB4 PO; -ASPI-664 PO; +ASPI81TA52 PO; +DOXY100T34 PO; +LOSA100T15 PO; -LOSA100T7 PO; -OMEP20CA16 PO; +OMEP20CA17 PO; +[UNRECOGNIZED DRUG - OTHER]; +fish oil; +mvi; +omega 3; +vit c
[2019-02-06 16:34] VITALS: BP 131/56; PULSE 73; RESP 18; Ht 157.5 cm; Wt 71.8 kg
== END 2019-02-07 18:07 | disposition home or self-care (01) ==
LOC: E/R 16:31
DX: L76.82 Other postprocedural complications of skin and subcutaneous tissue (principal); I10 Essential (primary) hypertension; Y82.9 Unspecified medical devices associated with adverse incidents; Z79.82 Long term (current) use of aspirin
CPT/HCPCS: 76536; Z7502

== ENCOUNTER 2019-02-09 14:08 | Emergency (ER) | payer OTHER ==
[~2019-02-09] VITALS: Ht 147.3 cm; Wt 71.7 kg
[2019-02-09 14:18] VITALS: BP 135/78; PULSE 69; RESP 18; Ht 147.3 cm; Wt 71.7 kg
== END 2019-02-09 15:43 | disposition home or self-care (01) ==
LOC: FTE 14:08
DX: L76.22 Postprocedural hemorrhage of skin and subcutaneous tissue following other procedure (principal)
CPT/HCPCS: 99281

== ENCOUNTER 2019-02-14 14:49 | Emergency (ER) | payer OTHER ==
[~2019-02-14] VITALS: Ht 149.9 cm; Wt 72.1 kg
[2019-02-14 14:52] VITALS: BP 131/66; PULSE 70; RESP 18; Ht 149.9 cm; Wt 72.1 kg
== END 2019-02-14 15:00 | disposition home or self-care (01) ==
LOC: E/R 14:49
DX: Z48.01 Encounter for change or removal of surgical wound dressing (principal); I10 Essential (primary) hypertension; Z79.82 Long term (current) use of aspirin
CPT/HCPCS: 99281